=== PATIENT | male | born 1980 | race African-American/Black ===

== ENCOUNTER 2018-05-13 05:41 | Emergency (ER) | payer OTHER, MEDICAID, SELFPAY ==
[2018-05-13 06:00] VITALS: BP 150/91; PULSE 124; RESP 24; TEMP 36.7; O2SAT 97; BMI 33.6
--- NOTE | 2018-05-13 06:04 | DI.RAD.S_ITS ---
PROCEDURE: XR CHEST 1V INDICATIONS: short of breath TECHNIQUE: One view of the chest was acquired. COMPARISON: [facility], , CHEST 2 VIEW, 06/11/2006, 17:43. FINDINGS: Surgical changes and devices: None. Lungs and pleura: No pleural effusions or pneumothorax. Lungs are clear. Mediastinum: Mediastinal contours appear normal. Heart size is normal. Bones and chest wall: No suspicious bony lesions. Overlying soft tissues appear unremarkable. IMPRESSION: Normal for age, source of current shortness of breath symptoms is not seen. Dictated by: Luis Chavarria M.D. on 05/13/2018 at 8:27 Approved by: Luis Chavarria M.D. on 05/13/2018 at 8:27
[2018-05-13] MEDS: SODIUM CHLORIDE 0.9% 1,000 ML 1000 ML IV (06:23)
[2018-05-13] MEDS: methylPREDNISolone 125 MG/2 ML VIAL IV (06:23)
[2018-05-13] MEDS: ALBUTEROL/IPRATROPIUM 3 ML AMPUL INH (06:23)
[2018-05-13 06:27] LABS: Add Manual Diff / Slide Review NO; Basophils Absolute Auto 0 /uL (0-100); Basophils Percent Auto 0.6 % (0-2); Eosinophils Absolute Auto 100 /uL (0-450); Eosinophils Percent Auto 2.2 % (2-4); Hematocrit 49.3 % (41-53); Hemoglobin 16.5 g/dL (13.5-17.5); Lymphocytes Absolute Auto 700 /uL (1100-4500); Lymphocytes Percent Auto 13.3 % (25-40); Mean Corpuscular HGB Conc 33.5 % (30-36); Mean Corpuscular Hemoglobin 28.4 PG (26-34); Mean Corpuscular Volume 84.7 fL (80-100); Monocytes Absolute Auto 800 /uL (0-900); Monocytes Percent Auto 14.2 % (3-14); Neutrophils Absolute Auto 3900 /uL (1500-7000); Neutrophils Percent Auto 69.7 % (50-75); Platelet Count 269 X10^3/uL (150-400); Red Blood Cell Count 5.82 X10^6/uL (4.5-5.9); Red Cell Distribution Width 14.2 % (11.6-14.8); White Blood Cell Count 5.6 X10^3/uL (4.5-11.0)
[2018-05-13 06:37] LABS: BUN Creatinine Ratio 8.8 (6-22); Blood Urea Nitrogen 7 mg/dL (9-20); Carbon Dioxide 30 mmol/L (22-32); Chloride 98 mmol/L (98-107); Estimated Glomerular Filt Rate > 60.0 mL/min (>60); Glucose 127 mg/dL (70-100); HEMOLYSIS 44 (0-50); Potassium 3.8 mmol/L (3.4-5.1); Sodium 139 mmol/L (137-145)
--- NOTE | 2018-05-13 06:43 | ED.URI ---
HPI - URI/Sore Throat General Chief Complaint: Upper Respiratory Symptoms Stated Complaint: thinks he has pneumonia Time Seen by Provider: 05/13/18 05:52 Source: patient Mode of arrival: ambulatory Limitations: no limitations History of Present Illness HPI Narrative: Patient is a 37-year-old male who presents with shortness of breath. It has been ongoing for about a week. He has a history of asthma he has a blue inhaler and read inhaler he has been using them both intermittently. He has body aches fevers and chills though he is afebrile here. He has a cough and is unable to anything up so he feels like he needs to. He is noted to be tachycardic but denies any heart palpitations. Related Data Home Medications Medication Instructions Recorded Confirmed ALBUTEROL SULFATE (Ventolin / 0 INH * [place] DOSE/FREQUENCY #0 06/11/06 Proventil) Previous Rx's Medication Instructions Recorded prednisone 50 mg PO DAILY #5 tab 05/13/18 Allergies Allergy/AdvReac Type Severity Reaction Status Date / Time prednisolone Allergy Verified 05/13/18 07:23 Review of Systems Review of Systems ROS Unobtainable: All systems reviewed & are unremarkable except as noted in HPI and below Constitutional Reports body ache(s), Reports chills and Reports fever(s) Eyes Denies change in vision, Denies eye discharge, Denies irritation and Denies loss of vision Cardiovascular Denies chest pain at rest, Reports rapid heart rate, Denies irregular heart rhythm, Denies dyspnea and Denies dyspnea on exertion Respiratory Denies cough, Denies dyspnea, Denies dyspnea on exertion and Denies wheezing Gastrointestinal Gastrointestinal: Denies abdominal pain, Denies change in bowel habits, Denies diarrhea, Denies nausea and Denies vomiting Musculoskeletal Denies back pain, Denies muscle weakness, Denies numbness and Denies tingling Integumentary/Breasts Denies pruritus, Denies erythema, Denies rash and Denies wounds Neurologic Denies loss of vision, Denies numbness and Denies tingling Allergic/Immunologic Denies wheezing [facility] Medical History Asthma (Acute) Social History Smoking Status: Current every day smoker Exam Initial Vital Signs Initial Vital Signs: Vital Signs Temperature 98.1 F 05/13/18 06:00 Pulse Rate 124 H 05/13/18 06:00 Respiratory Rate 24 05/13/18 06:00 Blood Pressure 150/91 H 05/13/18 06:00 Pulse Oximetry 97 05/13/18 06:00 GENERAL: alert well-appearing male HEENT: Head atraumatic,EOMI, pupils reactive, CARDIOVASCULAR: tachycardic regular RESPIRATORY: wheezing bilaterally no respiratory distress speaks in full sentences ABDOMEN: Soft, nontender. Normoactive bowel sounds all 4 quadrants. No guarding or rebound. EXTREMITIES: Normal range of motion, no clubbing or edema. Neurovascularly intact NEUROLOGICAL: Alert and oriented x4.Normal gait and speech. SKIN: Warm, dry, no laceration, no petechiae, no rashes or lesions. Course Orders Ordered: Discontinued Medications Albuterol/Ipratropium (Duoneb) 3 ml INH NOW ONE Stop: 05/13/18 06:03 Last Admin: 05/13/18 06:23 Dose: 3 ml Sodium Chloride (Normal Saline 0.9%) 1,000 mls @ 1,000 mls/hr IV BOLUS ONE Stop: 05/13/18 07:01 Last Infusion: 05/13/18 07:30 Dose: 0 mls/hr Admin: 05/13/18 06:23 Dose: 1,000 mls/hr Methylprednisolone (Solu-Medrol 125 Mg Vial) 125 mg IV NOW ONE Stop: 05/13/18 06:03 Last Admin: 05/13/18 06:23 Dose: 125 mg Vital Signs - 8 hr 05/13/18 06:00 Temperature 98.1 F Pulse Rate 124 H Respiratory Rate 24 Blood Pressure 150/91 H Pulse Oximetry 97 MDM - URI/Sore Throat Lab Data Attestation: I reviewed the patient's lab results. Result diagrams: 05/13/18 06:20 05/13/18 06:20 Lab Results 05/13/18 05/13/18 05/13/18 Range/Units 06:20 06:20 07:25 WBC 5.6 (4.5-11.0) X10^3/uL RBC 5.82 (4.5-5.9) X10^6/uL Hgb 16.5 (13.5-17.5) g/dL Hct 49.3 (41-53) % MCV 84.7 (80-100) fL MCH 28.4 (26-34) PG MCHC 33.5 (30-36) % RDW 14.2 (11.6-14.8) % Plt Count 269 (150-400) X10^3/uL Neut % (Auto) 69.7 (50-75) % Lymph % (Auto) 13.3 L (25-40) % Otoe % (Auto) 14.2 H (3-14) % Eos % (Auto) 2.2 (2-4) % Baso % (Auto) 0.6 (0-2) % Neut # (Auto) 3900 (7498-9794) /uL Lymph # (Auto) 700 L (6279-0293) /uL [place] # (Auto) 800 (0-900) /uL Eos # (Auto) 100 (0-450) /uL Baso # (Auto) 0 (0-100) /uL Sodium 139 (137-145) mmol/L Potassium 3.8 (3.4-5.1) mmol/L Chloride 98 (98-107) mmol/L Carbon Dioxide 30 (22-32) mmol/L BUN 7 L (9-20) mg/dL Creatinine 0.80 (0.66-1.25) mg/dL Estimated GFR > 60.0 (>60) mL/min BUN/Creatinine Ratio 8.8 (6-22) Glucose 127 H (70-100) mg/dL Calcium 9.0 (8.4-10.2) mg/dL Influenza A & B (PCR) Negative (Negative) Imaging Data Chest x-ray: Attestation: I personally reviewed and interpreted this imaging study as follows: My impression: No acute cardiopulmonary process ECG Data Attestation: I personally reviewed and interpreted this ECG as follows: Prior ECG tracings: not available for review Interpretation: snus tachycardia rate 112 DC interval [address] changes no T-wave inversions MDM Narrative Medical decision making narrative: patient's breathing is better after albuterol. Heart rate has improved. SPACER TEACHING DONE WITH RESPIRATORY. OVERALL FEELING BETTER. Discharge Plan Departure Patient Disposition: Home Clinical Impression: Upper respiratory infection, Asthma exacerbation Discharge Date/Time: 05/13/18 07:53 Interventions: ED Discharge Assessment Last Done: 05/13/18 07:52 Instructions: Asthma -- Adult Activity Restrictions/Additional Instructions: *You have been diagnosed with asthma exacerbation, with upper respiratory infection *What to do: increase fluid, at this time no need for antibiotics *Continue to take medications as directed prednisone 50 mg once a day x 5 days Albuterol 1-2 puffs every 4 hr if needed for shortness of breath *Follow up with your primary care provider in 2-3 days *Return to ER if you should have increased shortness of breath, difficulty breathing any new, worsening or concerning symptoms Prescriptions: New prednisone 50 mg tablet 50 mg PO DAILY Qty: 5 RF: 0 No Action ALBUTEROL SULFATE (Ventolin / Proventil) INH * DOSE/FREQUENCY Qty: 0 RF: 0 Referrals: [facility] [Provider Group]
[2018-05-13 07:00] VITALS: BP 149/93; PULSE 111; RESP 29; O2SAT 97
[2018-05-13 07:30] VITALS: BP 141/94; PULSE 113; RESP 27; O2SAT 97
--- NOTE | 2018-05-13 07:42 | RT ---
Pt issued and instructed proper use of spacer with his MDI.
[2018-05-13 07:49] LABS: Influenza A and B by PCR Rapid Negative (Negative)
[2018-05-13 07:52] VITALS: BP 141/64; PULSE 113; RESP 22; O2SAT 97
== END 2018-05-13 07:53 | disposition home or self-care (01) ==
PROVIDERS: Emergency Provider Emergency Medicine
DX: J06.9 Acute upper respiratory infection, unspecified (principal)
CPT/HCPCS: 36591; 71045; 80048; 85025; 87400; 93005; 93010; 94640; 96361; 96374; 99283; 99285; J2930

== ENCOUNTER 2019-11-26 11:57 | Emergency (ER) | payer OTHER, MEDICAID, SELFPAY ==
[2019-11-26 12:16] VITALS: BP 182/112; PULSE 117; RESP 18; TEMP 37.4; O2SAT 99; BMI 34.1
--- NOTE | 2019-11-26 12:19 | ED.DENTAL ---
HPI - Dental/Oral General Chief complaint: Dental/Oral Stated complaint: mouth is swelling up since last night Time Seen by Provider: 11/26/19 12:02 Source: patient Mode of arrival: Ambulatory Limitations: no limitations History of Present Illness HPI Narrative: Patient is a 39-year-old male who presents with mouth swelling which started yesterday. His left lower jaw he has dental pain woke up this morning and mouth was much more swollen. He denies any fever or chills. He does have a history of hypertension and is supposed to be taking lisinopril however he is non compliant has not taken lisinopril since February. Complaint: tooth pain Onset (ago): day(s) Severity: moderate Related Data Home Medications Medication Instructions Recorded Confirmed ALBUTEROL SULFATE (Ventolin / 0 INH * [place] DOSE/FREQUENCY #0 06/11/06 Proventil) Previous Rx's Medication Instructions Recorded prednisone 50 mg PO DAILY #5 tab 05/13/18 amoxicillin 500 mg PO TID #21 cap 11/26/19 Allergies Allergy/AdvReac Type Severity Reaction Status Date / Time prednisolone Allergy Verified 05/13/18 07:23 Review of Systems Review of Systems Narrative: GENERAL: Denies chills,fever HEENT: Denies throat pain RESPIRATORY: Denies dyspnea, cough, wheezing CARDIOVASCULAR: Denies chest pain, palpitations GASTROINTESTINAL: Denies nausea, vomiting MUSCULOSKELETAL: Denies extremity pain, injury SKIN: No rash, no laceration, no pruritus NEUROLOGIC: Denies weakness, dizziness, headache, numbness 8 point review of systems is negative except for those stated above and HPI Patient History Medical History (Updated 11/26/19 @ 12:22 by Yudelka Ochoa DO) Asthma (Acute) Social History Smoking Status: Current every day smoker Smoking Status: Current every day smoker alcohol intake frequency: other Substance Use Type: does not use Exam Initial Vital Signs Initial Vital Signs: Vital Signs Temperature 99.3 F 11/26/19 12:16 Pulse Rate 117 H 11/26/19 12:16 Respiratory Rate 18 11/26/19 12:16 Blood Pressure 182/112 H 11/26/19 12:16 Pulse Oximetry 99 11/26/19 12:16 GENERAL: Well-appearing, well-nourished and in no acute distress. HEENT: A swelling of left lower lip no tongue swelling no dental abscess multiple missing teeth CARDIOVASCULAR: peripheral pulses in tact, cap refill <2 sec RESPIRATORY: No respiratory distress, speaks in full sentences without difficulty [ABDOMEN: Soft, nontender, no guarding or rebound] EXTREMITIES: Normal range of motion, no clubbing or edema. Neurovascularly intact NEUROLOGICAL: Cranial nerves II through XII grossly intact. Normal gait and speech. SKIN: Warm, dry, no petechiae, no rashes or lesions. Course Vital Signs Vital signs: Vital Signs - 8 hr 11/26/19 12:16 Temperature 99.3 F Pulse Rate 117 H Respiratory Rate 18 Blood Pressure 182/112 H Pulse Oximetry 99 MDM - Dental/Oral MDM Narrative Medical decision making narrative: Patient's swelling is likely due to dental issue unlikely to be angioedema from lisinopril that he has not been taking for a number of months. He is given a prescription for antibiotics. However I did discuss with him the risk of lisinopril and recommend he not start taking it until he is seen by primary care provider. His blood pressure is noted to be elevated he is made aware that he does need blood pressure medication Discharge Plan Departure Patient Disposition: Home Clinical Impression: Toothache Discharge Date/Time: 11/26/19 12:29 Instructions: DI for Dental Pain Activity Restrictions/Additional Instructions: *You have been diagnosed with dental pain *What to do: Increased fluid intake *Continue to take medications as directed Amoxicillin 500 mg 3 times a day for 7 days Ibuprofen 800 mg every 8 hours if needed for pain or swelling with food for 7 days *Follow up with your primary care provider in 2-3 days *Return to ER if you should have increasing swelling inability to swallow swelling of tongue or any new, worsening or concerning symptoms Prescriptions: New amoxicillin 500 mg capsule 500 mg PO TID Qty: 21 RF: 0 No Action ALBUTEROL SULFATE (Ventolin / Proventil) 0 INH * [place] DOSE/FREQUENCY Qty: 0 RF: 0 prednisone 50 mg tablet 50 mg PO DAILY Qty: 5 RF: 0
== END 2019-11-26 12:29 | disposition home or self-care (01) ==
PROVIDERS: Emergency Provider Emergency Medicine
DX: K08.89 Other specified disorders of teeth and supporting structures (principal); I10 Essential (primary) hypertension
CPT/HCPCS: 99281

== ENCOUNTER 2020-06-20 06:47 | Emergency (ER) | payer OTHER, MEDICAID, SELFPAY ==
[2020-06-20 06:56] VITALS: BP 160/111; PULSE 130; RESP 20; TEMP 35.6; O2SAT 96; BMI 33.6
[2020-06-20 07:10] VITALS: PULSE 126; RESP 22; O2SAT 96
[2020-06-20] MEDS: ALBUTEROL HFA PREPACK 1 BOX MISC (07:13)
--- NOTE | 2020-06-20 07:20 | RT ---
Peak flow performed Predicted is 580 Pre treatment 100 post treatment 150 Patient states he has a long HX of Asthma HR 126 RR 22 posterior bilateral tight exp wheeze with slight aeration increase post treatment
[2020-06-20 07:21] LABS: COVID19 -Nasal RAPID Negative (Negative)
--- NOTE | 2020-06-20 07:36 | ED_ITS ---
HPI - General Adult General Chief complaint: Shortness of Breath/Dyspnea Stated complaint: SHORTNESS OF BREATH, ASTHMA Time Seen by Provider: 06/20/20 06:52 Source: patient Mode of arrival: Ambulatory Limitations: no limitations History of Present Illness HPI narrative: Patient is a 39-year-old male with a history of asthma and also hypertension who states that he does not have any albuterol medication left and only 2 doses of nebulizer medication left here for evaluation of what he states is an asthma attack. He states that has been worsening over the past 3 weeks. No fevers. No chest pain. He has been using inhalers from his friends with only minimal improvement. He states he has not been back to the doctor or the hospital in order to receive any refills of any of his medicines. He also states that he has not been taking any of his blood pressure medicine as well. He states that he is supposed to be on 20 mg of lisinopril. He is here for evaluation for his shortness of breath. Related Data Home Medications Medication Instructions Recorded Confirmed ALBUTEROL SULFATE (Ventolin / 0 INH * [place] DOSE/FREQUENCY #0 06/11/06 Proventil) Previous Rx's Medication Instructions Recorded prednisone 50 mg PO DAILY #5 tab 05/13/18 amoxicillin 500 mg PO TID #21 cap 11/26/19 albuterol sulfate 2 puff INHALATION Q4-6H PRN #18 g 06/20/20 albuterol sulfate 5 mg INHALATION Q6H PRN #30 ea 06/20/20 lisinopril 20 mg PO DAILY #60 tab 06/20/20 Allergies Allergy/AdvReac Type Severity Reaction Status Date / Time prednisolone Allergy Verified 05/13/18 07:23 Review of Systems Constitutional Constitutional: Denies fever(s) and Denies headache(s) ENT Ears, Nose, Mouth, and Throat: Denies headache(s) Cardiovascular Cardiovascular: Denies chest pain and Reports dyspnea Respiratory Respiratory: Reports cough, Reports dyspnea and Reports wheezing Gastrointestinal Gastrointestinal: Denies abdominal pain, Denies nausea and Denies vomiting Genitourinary Genitourinary: Denies dysuria Genitourinary: Denies dysuria Musculoskeletal Musculoskeletal: Denies arthralgias and Denies myalgias Integumentary/Breasts Skin/Breast: Denies rash Neurologic Neurologic: Denies behavioral changes and Denies headache(s) Psychiatric Psychiatric: Denies behavioral changes Hematologic/Lymphatic On Anticoagulants: No Allergic/Immunologic Allergic/Immunologic: Denies urticaria and Reports wheezing Patient History Medical History Asthma Hypertension Social History Smoking Status: Current every day smoker Smoking Status: Current every day smoker tobacco type: cigarettes alcohol intake frequency: holidays/special occasions only Substance Use Type: methamphetamine Exam Initial Vital Signs Initial Vital Signs: Vital Signs Temperature 96.1 F L 06/20/20 06:56 Pulse Rate 130 H 06/20/20 06:56 Respiratory Rate 20 06/20/20 06:56 Blood Pressure 160/111 H 06/20/20 06:56 Pulse Oximetry 96 06/20/20 06:56 Const General: cooperative, healthy appearing and comfortable Limitations: mental status not altered HENMT Head: normal to inspection and normocephalic Resp Effort & Inspection: tachypneic Auscultation: wheezes Cardio Rate: tachycardic Rhythm: regular rhythm Skin Lesions: no lesions Rashes: no rashes Neuro General: patient alert and patient awake Cognition: normal cognition Speech: speech normal Extrem General: capillary refill normal Psych Appearance: grossly normal and well kempt Course Orders Ordered: ED Orders 06/20/20 06:45 COVID19 Stat Discontinued Medications Albuterol (Albuterol Hfa Prepack) 1 box MISC SEEINSTR ONE Stop: 06/20/20 07:10 Last Admin: 06/20/20 07:13 Dose: 1 box Documented by: PRITESH Dexamethasone (Dexamethasone 4 Mg Tablet) 16 mg PO NOW ONE Stop: 06/20/20 07:37 Lisinopril (Lisinopril 20 Mg Tablet) 20 mg PO NOW ONE Stop: 06/20/20 07:37 Vital Signs Vital signs: Vital Signs - 8 hr 06/20/20 06:56 06/20/20 07:10 Temperature 96.1 F L Pulse Rate 130 H 126 H Respiratory Rate 20 22 Blood Pressure 160/111 H Pulse Oximetry 96 96 Medical Decision Making Lab Data Labs: Lab Results 06/20/20 Range/Units 06:45 SARS-CoV-2 (PCR) Negative (Negative) MDM Narrative Medical decision making narrative: Patient received albuterol by inhaler and AeroChamber prior to my evaluation and he had minimal wheezing bilateral bases. I was informed that he was wheezing prior to this exam. He was tachycardic but he has been using albuterol for the past several days. This appears to be his friend's albuterol not his own. He is also hypertensive but has not been taking any of his blood pressure medication. He has no signs of heart failure. He reports improvement of his symptoms after his albuterol. His COVID is negative. I have low suspicion for pneumonia. Plan will be is to given a dose of steroids here in the emergency department. I will refill his albuterol, albuterol nebulizer solution and his lisinopril. He was given return precautions and follow-up instructions. He expressed understanding and agreement. Discharge Plan Departure Patient Disposition: Home Clinical Impression: Asthma with exacerbation Instructions: DI for Asthma -- Adult Activity Restrictions/Additional Instructions: It is important that you take your blood pressure medication. I refilled your lisinopril and take it daily as directed. I also refilled your albuterol inhaler. Use it with the spacer/AeroChamber that you were given here in the emergency department. I also refilled your albuterol nebulizer solution. Please use this as directed. It is important that you have a primary care provider. You can contact [phone]. This is a health human resources analyst here at the hospital that can help you establish a doctor. Return to the emergency department for any new or worsening symptoms Prescriptions: New lisinopril 20 mg tablet 20 mg PO DAILY Qty: 60 RF: 3 albuterol sulfate 90 mcg/actuation HFA aerosol inhaler 2 puff inhalation Q4-6H PRN (Reason: shortness of breath or wheezing) Qty: 18 RF: 3 albuterol sulfate 2.5 mg/0.5 mL solution for nebulization 5 mg inhalation Q6H PRN (Reason: shortness of breath or wheezing) Qty: 30 RF: 3 No Action ALBUTEROL SULFATE (Ventolin / Proventil) 0 INH * [place] DOSE/FREQUENCY Qty: 0 RF: 0 prednisone 50 mg tablet 50 mg PO DAILY Qty: 5 RF: 0 amoxicillin 500 mg capsule 500 mg PO TID Qty: 21 RF: 0
[2020-06-20 07:54] VITALS: BP 160/111; PULSE 123
[2020-06-20] MEDS: dexAMETHasone 4 MG TABLET 16 MG PO (07:54)
[2020-06-20] MEDS: lisinopriL 20 MG TABLET PO (07:54)
[2020-06-20 08:12] VITALS: BP 168/80; PULSE 105; RESP 20; O2SAT 97
== END 2020-06-20 08:13 | disposition home or self-care (01) ==
PROVIDERS: Emergency Medicine; Emergency Provider Emergency Medicine
DX: J45.901 Unspecified asthma with (acute) exacerbation (principal); R05 Cough; I10 Essential (primary) hypertension; Z20.822 Contact with and (suspected) exposure to COVID-19
CPT/HCPCS: 87635; 94150; 94640; 99281; 99283; C9803